=== PATIENT | female | born 1980 | race Hispanic/Latino ===

== ENCOUNTER 2022-01-21 09:34 | Emergency (ER) | payer OTHER ==
[~2022-01-21] VITALS: Ht 154.9 cm; Wt 90.7 kg
[2022-01-21] MEDS ORDERED: LIDOCAINE IJ SCH (10:00)
[2022-01-21] MEDS ORDERED: LIDOCAINE HCL 1% 10 ML VIAL ONE (10:02)
[2022-01-21] MEDS ORDERED: LIDOCAINE HCL 1% 10 ML VIAL INJ SCH (10:30)
[2022-01-21] MEDS ORDERED: CEPH500B PO (10:44)
[2022-01-21] MEDS ORDERED: TETANUS/DIPHTHERIA TOXOID [ADULT] 0.5 ML VIAL IM ONE ×2 (10:51→11:00)
[2022-01-21 11:00] VITALS: BP 132/80
== END 2022-01-21 11:00 | disposition home or self-care (01) ==
LOC: EDH 09:34
DX: N75.0 Cyst of Bartholin's gland (principal); Z88.2 Allergy status to sulfonamides; Z88.1 Allergy status to other antibiotic agents
CPT/HCPCS: 99284; 56420; 90714; 90471; J3490